=== PATIENT | male | born 1955 | race Caucasian/White ===

== ENCOUNTER 2020-12-21 07:26 | Outpatient (CLI) | payer MEDICARE, OTHER ==
[2020-12-21] MEDS ORDERED: Iopamidol 370 76% 100 ML VIAL ONE (09:28)
== END 2020-12-21 07:27 | disposition home or self-care (01) ==
LOC: BICCT 07:26
PROVIDERS: ATTEND Family Medicine
DX: R91.1 Solitary pulmonary nodule (principal); K76.9 Liver disease, unspecified
CPT/HCPCS: 71260; Q9967

== ENCOUNTER 2022-03-11 11:40 | Outpatient (CLI) | payer MEDICARE, OTHER ==
[~2022-03-11 11:40] MED LIST: Iopamidol-370 76% 500 ML 1 ML ONE
== END 2022-03-11 11:41 | disposition home or self-care (01) ==
LOC: BICCT 11:40
PROVIDERS: ATTEND Family Medicine
DX: K76.0 Fatty (change of) liver, not elsewhere classified (principal); R91.1 Solitary pulmonary nodule
CPT/HCPCS: 71260; 74178; 82565; Q9967